=== PATIENT | female | born 1995 | race Caucasian/White ===

== ENCOUNTER 2024-06-13 09:26 | Day surgery (SDC) | payer MEDICAID ==
[~2024-06-13] VITALS: Ht 152.4 cm; Wt 68.0 kg
[2024-06-13] MEDS ORDERED: fentaNYL citrate 0.05 MG/ML VIAL ONE (11:27)
[2024-06-13] MEDS ORDERED: MIDAZOLAM 2 MG/2 ML VIAL ONE (11:27)
[2024-06-13] MEDS ORDERED: PROPOFOL 200 MG/20 ML VIAL IV ONE (11:29)
[2024-06-13] MEDS ORDERED: SUCCINYLCHOLINE CHLORIDE 200 MG/10 ML VIAL IVP ONE (11:29)
[2024-06-13] MEDS ORDERED: ROCURONIUM 50 MG/5 ML VIAL IV ONE (11:29)
[2024-06-13] MEDS ORDERED: DEXAMETHASONE 4 MG/ML VIAL ONE ×2 (11:29)
[2024-06-13] MEDS ORDERED: ONDANSETRON 4 MG/2 ML VIAL ONE ×2 (11:29)
[2024-06-13] MEDS ORDERED: SEVOFLURANE 250 ML BTL INH ONE (11:56)
[2024-06-13] MEDS ORDERED: NEOSTIGMINE 1:1000 10 MG/10 ML VIAL ONE (12:14)
[2024-06-13] MEDS ORDERED: GLYCOPYRROLATE 0.2 MG/ML VIAL ONE ×3 (12:14)
[2024-06-13] MEDS ORDERED: KETOROLAC 30 MG/ML VIAL ONE (12:14)
[2024-06-13] MEDS: BUPIVACAINE-MPF 0.25% 30 ML VIAL INJ ONE (12:15)
== END 2024-06-13 14:41 | disposition home or self-care (01) ==
LOC: MOR 09:26 → MMU 09:29 → MOR 14:41
PROVIDERS: ATTEND Obstetrics & Gynecology
DX: Z30.2 Encounter for sterilization (principal)
CPT/HCPCS: 58670; C1758; J0330; J1100; J1885; J2250; J2405; J2704; J2710; J3010; J3490; J7030